=== PATIENT | female | born 1985 | race Caucasian/White ===

== ENCOUNTER 2016-09-29 01:45 | Inpatient (IN) | payer OTHER ==
[2016-09-29 02:04] VITALS: BMI 28.7
[2016-09-29] MEDS ORDERED: OXYTOCIN IN LR 500 ML IV ONE (02:21)
[2016-09-29] MEDS ORDERED: LACTATED RINGERS 1,000 ML IV PRN (02:21)
[2016-09-29] MEDS ORDERED: LIDOCAINE 1% (PRES FREE) 30 ML VIAL ONE (02:29)
[2016-09-29] MEDS ORDERED: EPIDURAL PUMP SET ONE (02:29)
[2016-09-29] MEDS ORDERED: LIDOCAINE Viscous 2% 15 ML UDCUP ONE (02:29)
[2016-09-29] MEDS ORDERED: PUMP TUBING ONE (02:29)
[2016-09-29] MEDS ORDERED: IV START KIT ONE (02:29)
[2016-09-29] MEDS ORDERED: OXYTOCIN 10 UNITS/ML VIAL ONE (02:29)
[2016-09-29] MEDS ORDERED: MINERAL OIL 25 ML BOT ONE (02:29)
[2016-09-29] MEDS ORDERED: FENTANYL/ROPIVACAINE EPIDURAL 250 ML EP ONE (02:29)
[2016-09-29 02:47] LABS: HEMATOCRIT 36.4 % (37.0-47.0); HEMOGLOBIN 12.1 gm/l (12.0-16.0); MEAN CELL VOLUME 93.6 fl (81.0-99.0); MEAN CORPUSCULAR HEMOGLOBIN 31.1 pg (27.0-31.0); MEAN CORPUSCULAR HGB CONC 33.2 g/dl (33.0-37.0); RED CELL DISTRIBUTION WIDTH 13.1 % (11.5-14.5)
[2016-09-29] MEDS ORDERED: FENTANYL 100 MCG/2 ML VIAL ONE (03:02)
[2016-09-29] MEDS ORDERED: EPIDURAL PROCEDURE TRAY ONE (03:03)
[2016-09-29] MEDS ORDERED: LIDOCAINE 2% (PRES FREE) 5 ML VIAL ONE (03:03)
[2016-09-29] MEDS: FENTANYL/ROPIVACAINE EPIDURAL 250 ML EP SCH ×2 (03:45→06:50)
[2016-09-29] MEDS ORDERED: ONDANSETRON 4 MG/2ML 2 ML VIAL IV PRN (05:00)
[2016-09-29] MEDS ORDERED: LACTATED RINGERS 500 ML IV PRN (05:00)
[2016-09-29] MEDS ORDERED: NALOXONE HCL 0.4 MG/ML VIAL IV PRN (05:00)
[2016-09-29] MEDS ORDERED: NALBUPHINE HCL 20 MG/ML AMP IV PRN (05:00)
[2016-09-29] MEDS ORDERED: EPHEDRINE SULFATE 50 MG/ML 1ML VIAL IV PRN (05:00)
[2016-09-29] MEDS ORDERED: DIPHENHYDRAMINE HCL 50 MG/1 ML VIAL IV PRN (05:00)
[2016-09-29] MEDS ORDERED: METOCLOPRAMIDE HCL 5 MG/ML 2ML VIAL IV PRN (05:00)
[2016-09-29] MEDS ORDERED: SODIUM CHLORIDE 0.9% 500 ML IV PRN (05:00)
[2016-09-29] MEDS: LACTATED RINGERS 1,000 ML IV SCH ×3 (05:25→22:13)
--- NOTE | 2016-09-29 06:03 | PCMAN ---
OB Admission Note - History : 2 Term: 1 : 0 Abortions (S&E): 0 Livin Gestational Age (weeks): 40 Days (#/7): 3 Admit Cervical Dilation:: 6 Admit Cervical Effacement (%):: 90 Admit Station:: -2 Admit Presentaton:: vertex Membrane Status: Intact Rupture (Date): 09/29/16 Rupture (Time): 05:51 Membranes Comment:: clear Labor Onset (Date): 09/29/16 Labor Onset (Time): 00:30 Contractions: Yes Contraction Frequency:: 2-3 Heart Rate:: 140 Status:: category1 EFW:: 8 Summary of Course:: Uncomplicated, dates by LMP, confirmed by US. - Labs Blood Type: A (+) positive Hct/Hgb:: 36.4/12.1 Rubella Status: Immune GBS Status: Negative Abnormal Labs: None Other Labs:: 1 hr GTT 83 - Physical Exam General: Afebrile, No Acute Distress Psych/Mental Status: Mood/Affect Appropriate, Anxious Neurological: Grossly Intact, Alert, Oriented x 4, Normal Speech, Normal Reflexes, Cranial Nerves 3-12 Intact HEENT: Atraumatic, PERRLA, EOMI, Mucous membr. moist/pink Lungs: Clear to Auscultation Bilaterally Cardiovascular: Regular Rate and Rhythm, No Murmur Abdomen: Normal Bowel Sounds Genitourinary: Normal Female Genitalia Rectal Exam: Deferred Extremities: Full ROM Skin: Normal Color, No Rash - Problems (1) Post term Status: Acute Code: O48.0 Assessment/Plan: in active labor, expect soon.
[2016-09-29] MEDS ORDERED: LIDOCAINE 1% (PRES FREE) 30 ML VIAL IF ONE (08:29)
[2016-09-29] MEDS ORDERED: IBUPROFEN 800 MG TABLET PO PRN (08:29)
[2016-09-29] MEDS ORDERED: IBUPROFEN 800 MG TABLET ONE (08:43)
[2016-09-29] MEDS ORDERED: CALCIUM CARBONATE 500 MG TAB.CHEW PO PRN (09:12)
[2016-09-29] MEDS ORDERED: BENZOCAINE/MENTHOL 60 APPLIC/BOT TP PRN (09:12)
[2016-09-29] MEDS ORDERED: LANOLIN 50 APPLIC/7G TUBE TP PRN (09:12)
[2016-09-29] MEDS ORDERED: ACETAMINOPHEN 325 MG TABLET PO PRN (09:12)
--- NOTE | 2016-09-29 09:20 | PCMDEL ---
Delivery Note - Labor 1st stage (hr/min):: 7 hr/52 min 2nd stage (hr/min):: 1 hr/37 min 3rd stage (hr/min):: 11 min Total (hr/min):: 9 hr/ 40 min Pushed (hr/min):: 25 min - Delivery Delivery (Date): 09/29/16 Delivery (Time): 08:22 Gender: Female Presentation: Cephalic Position: OA Umbilical Cord: 3 Vessel Delayed Cord Clamping:: > 3 min 1 Minute Total: 9 5 Minute Total: 9 Placenta:: intact EBL:: 250 ml Perineum:: 3rd degree perineal laceration Suture:: 2-0 and 3-0 chromic Anesthesia/Meds:: Epidural and local for repair Length ROM:: 2 hr/33 min Comments:: Tight shoulders, delivered with Radha position. FOB helped catch baby. No complications.
[2016-09-29] MEDS: IBUPROFEN 800 MG TABLET PO SCH ×3 (10:13→21:32)
[2016-09-29] MEDS: OXYCODONE/ACETAMINOPHEN 5/325 MG TABLET PO PRN ×4 (10:19→23:30)
[2016-09-29] MEDS: OXYCODONE HCL 5 MG TABLET PO PRN ×2 (15:20→21:39)
[2016-09-30] MEDS: OXYCODONE/ACETAMINOPHEN 5/325 MG TABLET PO PRN ×3 (03:37→12:37)
[2016-09-30] MEDS: IBUPROFEN 800 MG TABLET PO SCH ×2 (03:37→12:33)
[2016-09-30] MEDS: OXYCODONE HCL 5 MG TABLET PO PRN (05:07)
[2016-09-30] MEDS: FENTANYL/ROPIVACAINE EPIDURAL 250 ML EP SCH (06:46)
[2016-09-30 07:06] LABS: HEMATOCRIT 26.2 % (37.0-47.0); HEMOGLOBIN 8.6 gm/l (12.0-16.0)
[2016-09-30] MEDS ORDERED: PRENATAL VIT/FE FUMARATE/FA 1 TABLET PO SCH (09:00)
[2016-09-30] MEDS ORDERED: DOCUSATE SODIUM 100 MG CAPSULE PO SCH (09:00)
--- NOTE | 2016-09-30 12:05 | PDOC39B ---
Hospital Course: ADMIT DATE: 09/29/16 DISCHARGE DATE: 09/30/16 ADMISSION DIAGNOSES: Post term PROCEDURES: Spontaneous Vaginal Delivery, Third degree perineal laceration repair HISTORY OF PRESENT ILLNESS: 31 year old G2 T1 L1 at 40 weeks 3 days presenting with active labor, had uncomplicated vaginal delivery with thrid degree perineal laceration. HOSPITAL COURSE: The patient had an uncomplicated post course. By day of discharge the patient is ambulating, eating, voiding, and passing flatus without difficulty. Pain is controlled and lochia is appropriate. She is [] - Physical Exam Vital Signs: Temp Pulse Resp BP Pulse Ox 97.9 F 88 18 132/73 09/30/16 08:16 09/30/16 08:16 09/30/16 08:16 09/30/16 08:16 General: Afebrile, No Acute Distress Psych/Mental Status: Mood/Affect Appropriate Neurological: Alert, Oriented x 4 HEENT: Atraumatic, PERRLA, EOMI, Mucous membr. moist/pink Lungs: Clear to Auscultation Bilaterally Cardiovascular: Regular Rate and Rhythm, No Murmur Breast: Soft, Skin intact, Nipples Intact, No Nipples Cracked Fundus: Firm, Midline, Below Umbilicus Abdomen: Normal Bowel Sounds Genitourinary: Normal Female Genitalia, Edema (mild) Lochia: Light Extremities: Full ROM, No Edema Deep Tendon Reflexes: Patellar (L): 2+ (Brisk, Normal), Patellar (R): 2+ (Brisk , Normal) Skin: Normal Color, Warm, Dry, Intact, No Rash Wound: Dressing Clean/Dry/Intact, Well Approximated - Discharge Diagnosis (1) (normal spontaneous vaginal delivery) Status: Acute Assessment/Plan: Stable, discharge home with FU in 6 weeks. (2) Third degree perineal laceration during delivery Status: Acute Assessment/Plan: Healing well, mild edema, sutures intact. (3) Acute blood loss anemia Status: Acute Assessment/Plan: will continue Iron as an outpatient as well as stool softener - Discharge Plan Condition: Good Disposition: Home Instruction Forms: Vaginal Discharge Instructions Prescriptions: Ibuprofen [IBUPROFEN 800 MG TABLET (SHF)] 800 mg PO Q6H #30 tablet Oxycodone HCl/Acetaminophen [PERCOCET 5/325 MG TABLET (SHF)] 1 - 2 tab PO Q4H PRN #20 tablet PRN Reason: Pain (Moderate) Cholecalciferol (Vitamin D3) [Vitamin D3] 5,000 units PO DAILY #100 capsule
[2016-09-30 13:31] VITALS: BP 133/82
== END 2016-09-30 15:15 | disposition home or self-care (01) | DRG 775 ==
LOC: FBCOUT 01:45 → FBC 01:45 → FBCOUT 02:20 → FBC 02:20
PROVIDERS: ADMIT Family Medicine; ATTEND Family Medicine
PROC: 10E0XZZ Delivery of Products of Conception, External Approach (ICD-10-PCS; principal; 2016-09-30)
PROC: 0DQR0ZZ Repair Anal Sphincter, Open Approach (ICD-10-PCS; 2016-09-30)
DX: O48.0 Post-term pregnancy (principal); O70.20 Third degree perineal laceration during delivery, unspecified; D62 Acute posthemorrhagic anemia; Z3A.40 40 weeks gestation of pregnancy; Z37.0 Single live birth